=== PATIENT | male | born 1970 | race Caucasian/White ===

== ENCOUNTER 2017-10-12 06:48 | Emergency (ER) | payer SELFPAY ==
[~2017-10-12] VITALS: Ht 180.3 cm; Wt 75.0 kg
[2017-10-12 08:21] VITALS: BP 113/60
== END 2017-10-12 08:21 | disposition home or self-care (01) | DRG 603 ==
LOC: ED 06:48
DX: L03.011 Cellulitis of right finger (principal); K21.9 Gastro-esophageal reflux disease without esophagitis